=== PATIENT | female | born 1980 | race Caucasian/White ===

== ENCOUNTER 2016-06-10 23:39 | Emergency (ER) | payer OTHER ==
[~2016-06-10] VITALS: Ht 162.6 cm; Wt 110.0 kg
[~2016-06-10 23:39] MED LIST: AMOXICILLIN500 MG PO; ANTIVERT25 MG PO; BACTRIM,SEPT1 TABLET PO; CLINDAMYCIN HC300 MG PO; KEFLEX500 MG PO; MEDROL DOSEPAK4 MG PO; NORCO 5/3251 TABLET PO; ORAL ANALGESIC9 GM MM; PERCOCET 5/31 TABLET PO; PROAIR HFA8.5 GM IH; ROBITUSSIN AC,T10 ML PO; TAMIFLU75 MG PO; TRAMADOL HCL50 MG PO; ULTRAM50 MG PO; ZITHROMAX500 MG PO
[2016-06-11] MEDS ORDERED: NAPROSYN500 MG PO (00:41)
[2016-06-11] MEDS ORDERED: ULTRAM50 MG PO (00:41)
[2016-06-11 01:13] VITALS: BP 130/98
== END 2016-06-11 01:14 | disposition home or self-care (01) ==
LOC: EME 23:39
DX: M25.512 Pain in left shoulder (principal)
CPT/HCPCS: 73030; 99281; 99283

== ENCOUNTER 2016-08-27 23:23 | Emergency (ER) | payer OTHER ==
[~2016-08-27] VITALS: Ht 162.6 cm; Wt 110.6 kg
[~2016-08-27 23:23] MED LIST changes: +NAPROSYN500 MG PO
[2016-08-27] MEDS ORDERED: ZITHROMAX Z-PA250 MG PO (23:59)
[2016-08-28] MEDS ORDERED: PREDNISONE20 MG PO
[2016-08-28] MEDS ORDERED: VENTOLIN HFA18 GM IH (00:34)
[2016-08-28] MEDS ORDERED: ROBITUSSIN AC,T10 ML PO (00:34)
[2016-08-28 01:24] VITALS: BP 142/67
== END 2016-08-28 01:25 | disposition home or self-care (01) ==
LOC: EME 23:23 → EXP 23:23
DX: J40 Bronchitis, not specified as acute or chronic (principal); J98.01 Acute bronchospasm; Z79.52 Long term (current) use of systemic steroids; Z87.891 Personal history of nicotine dependence
CPT/HCPCS: 94640; 94664; 99281; 99284

== ENCOUNTER 2016-09-03 11:48 | Emergency (ER) | payer OTHER ==
[~2016-09-03] VITALS: Ht 162.6 cm; Wt 110.2 kg
[~2016-09-03 11:48] MED LIST changes: +PREDNISONE20 MG PO; +VENTOLIN HFA18 GM IH; +ZITHROMAX Z-PA250 MG PO
[2016-09-03] MEDS ORDERED: AMOX TR-K CLV1 EAC4 PO (13:21)
[2016-09-03 13:36] LABS: HEMATOCRIT 37.7 % (36.0-46.0); MCH 24.3 PG (29.0-34.0); MCV 78.4 FL (83-99); MEAN PLAT.VOLUME 9.2 uM^3 (9.5-12.4); PLATELET COUNT 264 K/uL (156-360); RBC DIS.WIDTH-CV 13.8 % (11.8-14.6); RBC DIS.WIDTH-SD 39.2 % (39-53); RED BLOOD COUNT 4.81 M/uL (3.80-5.20)
[2016-09-03 13:52] LABS: CHLORIDE 102 mEq/L (99-109); POTASSIUM 3.6 mEq/L (3.7-5.4); SODIUM 137 mEq/L (136-147)
[2016-09-03 13:54] LABS: GLUCOSE 95 mg/dL (70-99)
[2016-09-03 13:58] LABS: GFR ESTIMATE (CALCULATED) > 59 mL/min/
[2016-09-03 13:59] LABS: UREA NITROGEN (BUN) 11 mg/dL (9-23)
[2016-09-03 14:20] LABS: LIPASE 48 U/L (1.0-51.0)
[2016-09-03 14:25] LABS: QUANTITATIVE HCG < 4.0 MIU/ML
[2016-09-03 14:51] LABS: ADD MIUA? YES; BILIRUBIN NEGATIVE; BLOOD SMALL; COLOR YELLOW ((YELLOW)); GLUCOSE (STRIP) NEGATIVE; KETONES NEGATIVE; LEUKOCYTES NEGATIVE; NITRITE NEGATIVE; PROTEIN (STRIP) 30; SPECIFIC GRAVITY 1.028 (1.000-1.030); UROBILINOGEN 0.2 MG/DL (0.2-1.0)
[2016-09-03 15:03] LABS: BACTERIA RARE /HPF; EPITHELIAL CELLS 1+ /HPF; MUCUS 1+ /LPF; WHITE BLOOD CELLS 0-5 /HPF (0-5)
[2016-09-03] MEDS ORDERED: TUSSIONEX PENN473 ML PO (15:03)
[2016-09-03 15:39] VITALS: BP 123/78
== END 2016-09-03 15:40 | disposition home or self-care (01) ==
LOC: EME 11:48
PROVIDERS: Nurse Practitioner Family
DX: J06.9 Acute upper respiratory infection, unspecified (principal); Z87.891 Personal history of nicotine dependence
CPT/HCPCS: 71020; 80048; 81003; 83690; 84702; 85027; 99281; 99284; J7030

== ENCOUNTER 2017-10-15 21:11 | Emergency (ER) | payer OTHER ==
[~2017-10-15] VITALS: Ht 162.6 cm; Wt 109.6 kg
[~2017-10-15 21:11] MED LIST changes: +AMOX TR-K CLV1 EAC4 PO; +TUSSIONEX PENN473 ML PO
[2017-10-15 21:41] LABS: HEMATOCRIT 36.2 % (36.0-46.0); HEMOGLOBIN 11.8 G/DL (11.9-15.5); MCH 26.4 PG (29.0-34.0); MCHC 32.6 G/DL (30.0-36.0); PLATELET COUNT 316 K/uL (156-360); RBC DIS.WIDTH-CV 14.1 % (11.8-14.6); RBC DIS.WIDTH-SD 41.5 % (39-53); RED BLOOD COUNT 4.47 M/uL (3.80-5.20); WHITE BLOOD COUNT 9.2 K/uL (4.1-10.2)
[2017-10-15 21:54] LABS: CHLORIDE 109 mEq/L (99-109); POTASSIUM 3.5 mEq/L (3.7-5.4); SODIUM 142 mEq/L (136-147)
[2017-10-15 21:56] LABS: GLUCOSE 98 mg/dL (70-99)
[2017-10-15 22:00] LABS: CREATININE 0.8 mg/dL (0.6-1.3); GFR ESTIMATE (CALCULATED) > 59 mL/min/
[2017-10-15 22:01] LABS: UREA NITROGEN (BUN) 11 mg/dL (9-23)
[2017-10-15] MEDS ORDERED: NEBULIZER MC (23:19)
[2017-10-15] MEDS ORDERED: PROVENTIL,2.5 MG/3 M IH (23:19)
[2017-10-15 23:58] VITALS: BP 115/71
== END 2017-10-16 00:01 | disposition home or self-care (01) ==
LOC: EME 21:11
DX: J20.9 Acute bronchitis, unspecified (principal); Z87.891 Personal history of nicotine dependence; Z90.49 Acquired absence of other specified parts of digestive tract
CPT/HCPCS: 71046; 80048; 85027; 85379; 94640; 99281; 99284